=== PATIENT | female | born 1940 | race Caucasian/White ===

== ENCOUNTER 2016-10-01 08:23 | Observation (INO) | payer MEDICARE, OTHER ==
[2016-09-26 13:53] LABS: HEMATOCRIT 39.8 % (36.0-48.0); HEMOGLOBIN 13.3 g/dL (12.0-16.0)
[2016-09-26 14:06] LABS: BUN (BLOOD UREA NITROGEN) 25 MG/DL (6-23); CALCIUM, SERUM 8.7 MG/DL (8.5-10.4); CHLORIDE, SERUM 105 MMOL/L (96-112); CO2 (CARBON DIOXIDE) 29 MMOL/L (24-34); GFR AFRICAN AMERICAN 47 ML/MIN (>=60); GFR NON AFRICAN AMERICAN 40 ML/MIN (>=60); GLUCOSE, SERUM 82 MG/DL (60-99); POTASSIUM, SERUM 4.3 MMOL/L (3.5-5.3); SODIUM, SERUM 141 MMOL/L (135-148)
--- NOTE | ~2016-10-01 | OP ---
Record Of Operation [facility] [address] [place]. [address] NAME: BLAKE CLEMENTS DECEMBER : [birth year] STATUS : DIS Pao PAT#: [id number] AGE: 76 ADM/REG DATE : 10/01/16 MR#: [id number] REPORT SERV DATE: 10/03/16 DICTATED BY: RENEE FRANKLIN II DATE: 10/03/16 REPORT STATUS : Draft TRANSCRIBED BY: MODL DATE: 10/03/16 DATE OF PROCEDURE: 10/01/2016 PREOPERATIVE DIAGNOSES: 1. Right upper extremity radiculopathy. 2. 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 POSTOPERATIVE DIAGNOSES: 1. Right upper extremity radiculopathy. 2. 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 PROCEDURES: 1. C6-7 anterior interbody arthrodesis. 2. Application of prosthetic device, C6-7. 3. Anterior instrumentation, C6-7. 4. Use of the microscope. 5. Use of allograft substitute and bone marrow aspirate. SURGEON: Renee Franklin M.D. FLUIDS: 1100 mL of LR. ESTIMATED BLOOD LOSS: 20 mL. DRAINS: One drain. COMPLICATIONS: None. ANTIBIOTIC: Preoperatively. PREOPERATIVE HISTORY: This is a very friendly 76-year-old female suffering with some neck pain, but predominantly complains of pain radiating into the right upper extremity. She was also experiencing some falls. She reported having some difficulty with balance. Her CT myelogram did show some evidence of cord compression as well as significant foraminal osteophyte formation. We discussed the pros and cons of surgery. She was eager to have something done. DESCRIPTION OF PROCEDURE: After informed consent was obtained, the patient was brought to the operating room at her request, and general anesthesia achieved. She was placed in the supine position. At this point, the neck and iliac crest were prepped and draped in a sterile fashion. The 5 mL of bone marrow was aspirated from the iliac crest followed by a right-sided longitudinal incision. The interval was explored. The deep cervical fascia was incised. The subperiosteal exposure was completed from C6-C7 and the Wellman pins placed. The microscope was now brought into place, and under microscopic visualization, the Record Of Operation [facility] [address] [place]. [address] NAME: BLAKE CLEMENTS DECEMBER : [birth year] STATUS : DIS Pao PAT#: [id number] AGE: 76 ADM/REG DATE : 10/01/16 MR#: [id number] REPORT SERV DATE: 10/03/16 DICTATED BY: RENEE FRANKLIN II DATE: 10/03/16 REPORT STATUS : Draft TRANSCRIBED BY: RAVEN DATE: 10/03/16 diskectomy was completed with the pituitary rongeurs, Kerrison rongeurs, and the curettes. The endplates were denuded of their cartilage and the posterior vertebral body osteophytes removed and the posterior longitudinal ligament removed and the anterior canal and foramen well decompressed. The foraminal osteophytes were significant in size and the Kerrison rongeurs used to remove these. The prosthetic device was then well placed at C6-7. This contained allograft substitute and bone marrow aspirate. Excellent fit was obtained. Next, the Wellman pins were removed and the anterior fixation device placed with two screws in the C6 and C7. Please note, this was a separate plate and screw construct. Multiplanar imaging confirmed acceptable placement of the implants. The standard closure was performed after a drain was placed secondary to mild cancellous bone bleeding. Standard closure was performed. The patient was then extubated and transferred to PACU in stable condition. JUDITH/RAVEN Renee Franklin II, M.D. / [id number] CC: Chava Mcguire II, FREDRICK S
[~2016-10-01 08:23] MED LIST: C1 PO; C5 PO; CITRACAL PO; CORDARONE PO; COREG12 PO; COREG6 PO; COUMADIN3 MG PO; DILT-XR240 MG PO; FISH-EPA1000 MG PO; FOSAMAX70 MG PO; GLUCCHONDR PO; JANTOVEN5 MG PO; JOINT HEALT1 PO; JUICE PLUS PO; KDUR20 PO; KLOR-CON M2020 MEQ PO; L20 PO; L40 PO; LEVOTHROID88 MCG PO; LEVOTHYROXIN88 MCG PO; MELATONIN5 M1 PO; MUCINEX1200 MG PO; MULTIVITAMI1 PO; OS500+D PO; SYN075 PO; TAZTIA X3 PO
[2016-10-01 09:08] LABS: INTERNATIONAL NORMAL RATI 1.2 UNITS (-); PROTIME (NOT ORD) 14.8 SEC (12.0-14.5)
[2016-10-02 05:13] LABS: INTERNATIONAL NORMAL RATI 1.2 UNITS (-); PROTIME (NOT ORD) 15.4 SEC (12.0-14.5)
[2016-10-02] MEDS ORDERED: PCET PO (11:00)
[2017-03-03] MEDS ORDERED: C2 PO (14:22)
[2017-03-03] MEDS ORDERED: TRAZ100 PO (14:23)
[2017-03-03] MEDS ORDERED: GLUCCHONDR PO (14:23)
== END 2016-10-02 12:50 | disposition home or self-care (01) ==
LOC: SDC/OF 08:23 → PACU 13:56 → 3SO 15:38
PROVIDERS: Orthopaedic Surgery
PROC: 0RG10K0 Fusion of Cervical Vertebral Joint with Nonautologous Tissue Substitute, Anterior Approach, Anterior Column, Open Approach (ICD-10-PCS; 2016-10-01)
PROC: 0RG10J0 Fusion of Cervical Vertebral Joint with Synthetic Substitute, Anterior Approach, Anterior Column, Open Approach (ICD-10-PCS; 2016-10-01)
PROC: 079T3ZX Drainage of Bone Marrow, Percutaneous Approach, Diagnostic (ICD-10-PCS; 2016-10-01)
PROC: 0RG10A0 Fusion of Cervical Vertebral Joint with Interbody Fusion Device, Anterior Approach, Anterior Column, Open Approach (ICD-10-PCS; principal; 2016-10-01 10:15)
DX: M50.123 Cervical disc disorder at C6-C7 level with radiculopathy (principal); I13.0 Hypertensive heart and chronic kidney disease with heart failure and stage 1 through stage 4 chronic kidney disease, or unspecified chronic kidney disease; I50.9 Heart failure, unspecified; N18.3 Chronic kidney disease, stage 3 (moderate); E03.9 Hypothyroidism, unspecified; G47.30 Sleep apnea, unspecified; Z79.01 Long term (current) use of anticoagulants; Z95.0 Presence of cardiac pacemaker; Z79.899 Other long term (current) drug therapy; Z99.89 Dependence on other enabling machines and devices; Z87.442 Personal history of urinary calculi; Z98.890 Other specified postprocedural states
CPT/HCPCS: 76000; 80048; 82962; 85014; 85018; 85610; 87641; 88304; 88311; 93005; 96374; 96375; 96376; A9270-GY; C1713; G0378; J0690; J2250; J2405; J2710; J3010; J3370

== ENCOUNTER 2017-03-21 05:35 | Day surgery (SDC) | payer MEDICARE, OTHER ==
[~2017-03-21] VITALS: Ht 165.1 cm; Wt 106.6 kg
[~2017-03-21 05:35] MED LIST changes: +C2 PO; +PCET PO; +TRAZ100 PO
[2017-03-21 06:22] LABS: INTERNATIONAL NORMAL RATI 1.2 UNITS (-); PROTIME (NOT ORD) 15.4 SEC (12.0-14.5)
== END 2017-03-21 08:34 | disposition home or self-care (01) ==
LOC: SDC 05:35
PROVIDERS: Orthopaedic Surgery
PROC: B01BZZZ Fluoroscopy of Spinal Cord (ICD-10-PCS; 2017-03-21)
PROC: 3E0R33Z Introduction of Anti-inflammatory into Spinal Canal, Percutaneous Approach (ICD-10-PCS; 2017-03-21)
PROC: 3E0R3BZ Introduction of Anesthetic Agent into Spinal Canal, Percutaneous Approach (ICD-10-PCS; principal; 2017-03-21 07:30)
DX: M54.16 Radiculopathy, lumbar region (principal); Z79.899 Other long term (current) drug therapy; Z98.41 Cataract extraction status, right eye; Z98.42 Cataract extraction status, left eye; Z98.890 Other specified postprocedural states
CPT/HCPCS: 85610